=== PATIENT | male | born 1975 | race Two or more races ===

== ENCOUNTER → 2021-06-29 | Outpatient (CLI) | payer OTHER ==
--- NOTE | 2021-06-29 16:52 | KCIC ---
EXAM: Pelvis and left hip, 2 views. HISTORY: Limited range of motion. COMPARISON: None. FINDINGS: A frontal view the pelvis and frog-leg view of the left hip are obtained. There is no fract ure, dislocation or subluxation. 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 There is a s uspected bone island within the proximal right femur. IMPRESSION: No acute osseous finding. Electronically signed by: Mary Hankins MD (06/29/2021 4:50 PM) [id number]
--- NOTE | 2021-06-29 16:55 | KCIC ---
EXAM: Bilateral knees, standing view. HISTORY: Pain. COMPARISON: None. FINDINGS: A frontal standing view both knees is obtained. There is a leg length discrepancy. This is associated with a left inferior tilt and severe rotatory scoliosis demonstrated on a pelvic radiograp h obtained on the same date. There is no fracture, dislocation or subluxation. There is no suspicious osseous lesion. IMPRESSION: No acute osseous finding. Leg length discrepancy. Electronically signed by: Mary Hankins MD (06/29/2021 4:53 PM) [id number]
== END ==
LOC: KCIC 16:01
PROVIDERS: ATTEND Physical Medicine & Rehabilitation
DX: M17.0 Bilateral primary osteoarthritis of knee (principal); M21.70 Unequal limb length (acquired), unspecified site; M41.86 Other forms of scoliosis, lumbar region
CPT/HCPCS: 73501; 73565